=== PATIENT | male | born 2000 ===

== ENCOUNTER 2023-04-23 16:36 | Observation (INO) ==
[2023-04-23] MEDS ORDERED: Patient's ALLERGY Info needs ENTERED SCH (16:48)
--- NOTE | 2023-04-23 16:49 | ED Triage Note ---
Date of Service April 23, 2023 History of Present Illness This patient was briefly evaluated while in triage. An abbreviated physical exam was performed. This patient is a 22-year-old Male who presents to the ED for evaluation of severe abdominal pain. Pain is on the right side and started around 6 am. He denies nausea/vomiting. Pain is constant. He denies urinary symptoms. Physical Exam VITALS: Vitals are noted on the nurse's note and reviewed by myself. GENERAL: This is a 22-year-old male, in no acute distress, well-developed well- nourished. SKIN: The skin was without rashes. HEART: Regular rate and rhythm without murmurs gallops or rubs. LUNGS: Clear to auscultation bilaterally without wheezes, rales or rhonchi. ABDOMEN: Positive bowel sounds x 4. Tenderness to palpation in the right mid abdomen. NEURO: Patient was alert and oriented to person place and time. Initial orders for labs and / or imaging were placed and patient was placed in the waiting area until a bed is available. Please see further documentation for the full ED course.
[2023-04-23 17:24] LABS: Basophils # (auto) 0.03 K/uL (0.00-0.20); Basophils % (auto) 0.2 %; Eosinophils # (auto) 0.03 K/uL (0.00-0.50); Eosinophils % (auto) 0.2 %; Hematocrit (blood only) 45.7 % (42.0-52.0); Hemoglobin 15.9 g/dl (14.0-18.0); Immature Granulocytes # (auto) 0.04 K/uL (0.01-0.20); Immature Granulocytes % (auto) 0.3 %; Lymphocytes # (auto) 1.36 K/uL (1.20-3.40); Lymphocytes % (auto) 9.2 %; Mean Corpuscular Hemoglobin 29.4 pg (25.0-34.0); Mean Corpuscular Hgb Conc 34.8 g/dL (32.0-36.0); Mean Corpuscular Volume 84.6 fL (80.0-100.0); Mean Platelet Volume 9.7 fL (9.4-12.4); Monocytes % (auto) 7.4 %; Neutrophils # (auto) 12.21 K/uL (1.40-6.50); Neutrophils % (auto) 82.7 %; Platelet Count 214 K/uL (130-400); RDW Coefficient of Variation 12.4 % (11.5-14.5); RDW Standard Deviation 38.3 fL (36.4-46.3); White Blood Count 14.77 K/ul (4.8-10.8)
[2023-04-23 17:41] LABS: Albumin Globulin Ratio 1.4 (0.9-2); BUN Creatinine Ratio 21.1 (10-20); Bilirubin,Total 0.7 mg/dl (0.2-1.0); Calcium 9.9 mg/dl (8.6-10.3); Creatinine Clr Calc Pharmacy 104.5 ml/min; Est GFR (African American) 91.5 ml/min; Est GFR (Non-African American) 78.9 ml/min; Globulin 3.6 gm/dl (2.5-4.0); Potassium 3.8 mmol/L (3.5-5.1); Total Protein 8.6 gm/dl (6.0-8.3)
[2023-04-23] MEDS ORDERED: OPTIRAY 320 100ml IV ONE (18:20)
[2023-04-23] MEDS ORDERED: MoRPHine SULFATE 10 MG/ML CARP/VIAL IV STA (18:20)
[2023-04-23] MEDS ORDERED: MoRPHine SULFATE 4 MG/ML 1 ML CARP\\VIAL ONE (18:25)
[2023-04-23] MEDS ORDERED: MoRPHine SULFATE 2 MG/ML CARP ONE ×2 (18:26→23:01)
--- NOTE | 2023-04-23 18:42 | CT Scan Report ---
ABDOMEN AND PELVIS CT WITH IV CONTRAST CT DOSE: 1389.67 mGy.cm HISTORY: Acute right-sided abdominal pain right sided abd pain TECHNIQUE: Multiaxial CT images of the abdomen and pelvis were performed following the IV administrat ion of 93 cc of Optiray, A dose lowering technique was utilized adhering to the principles of ALARA. COMPARISON STUDY: None. FINDINGS: The lung bases are clear. The liver, spleen, gallbladder, pancreas, kidneys, and adrenal gl ands are within normal limits. The appendix is dilated, fluid-filled and inflamed measuring up to 1.2 cm transversely with thickened pena and adjacent inflammatory stranding. 2.7 cm proximal appendicea l appendicolith. No pneumoperitoneum or abscess. Subcentimeter right lower quadrant lymph nodes are l ikely reactive. No bowel wall thickening or obstruction. The pelvic organs are unremarkable. Chronic bilateral L5 pars defects without spondylolisthesis. No acute fracture. Minimal lumbar levoscoliosis. IMPRESSION: Acute appendicitis with appendicolith. No pneumoperitoneum or abscess. ACT 112: Negative or not required by law. The above report was generated using voice recognition software. It may contain grammatical, syntax o r spelling errors. Electronically signed by: Edgard Dutta M.D. 04/23/2023 6:40 PM
--- NOTE | 2023-04-23 19:08 | History & Physical Report ---
Date of Service April 23, 2023 Assessment & Plan (1) Acute appendicitis: Plan: 22 yr old man with acute appendicitis. Discussed lap appendectomy with risks of bleeding, infection, conversion to open, postop ileus/ abscess, negative appy. Expected 1-2 week recovery period reviewed. Consent signed. History of Present Illness Chief Complaint: abdominal pain Primary Care Provider: NO PCP 22 yr old man with right lower quadrant abdominal pain. Began more generalized this am then migrated to right lower quadrant. Pain is constant, not worse with movement. Was able to nap but the pain woke him up. No vomiting. Mild nausea. Last meal was this morning around 9:30 am, last vaped around 4:20 pm. No fevers. Pain is 8/10 in intensity, worse if he laughs. No similar symptoms. Past Med/Surg History Social History Smoking Status: Current some day smoker Tobacco Type: E-cigarettes / Vaping Preferred Language: Kazakh Feels Safe at Home: Yes Review of Systems Review of Systems: All systems reviewed & are unremarkable except as noted in HPI & below Physical Exam Constitutional: WD/WN, vitals as above Eyes: PERRL, conjunctivae normal, anicteric sclerae Respiratory: normal respiratory effort, lungs clear to auscultation Cardiovascular: RRR, no murmur, no edema Gastrointestinal (Abdomen): Inspection/Auscultation: abdomen normal to insp ection, + abdomen distended (mild) and normal bowel sounds Percussion/Palpation: + abdomen tender (over McBurney's point and in left lower quadrant) and abdomen soft; no guarding and no hepatosplenomegaly Musculoskeletal: no cyanosis or clubbing, extremities motor strength 5/5 Neurologic: awake; no focal motor deficits Psychiatric: A+Ox3, euthymic affect Results & Data Results & Data Vital Signs (Past 12 Hours) Vital Signs Temp Pulse Pulse Resp BP BP Pulse Ox 04/23/23 18:35 04/23/23 18:35 67 22 171/95 H 100 04/23/23 16:48 36.7 C 83 19 141/93 H 97 O2 Del Method 04/23/23 18:35 Room Air 04/23/23 18:35 Room Air 04/23/23 16:48 Room Air Laboratory Results 04/23/23 Range/Units 17:08 WBC 14.77 H (4.8-10.8) K/ul RBC 5.40 (4.70-6.10) M/uL Hgb 15.9 (14.0-18.0) g/dl Hct 45.7 (42.0-52.0) % MCV 84.6 (80.0-100.0) fL MCH 29.4 (25.0-34.0) pg MCHC 34.8 (32.0-36.0) g/dL RDW Std Deviation 38.3 (36.4-46.3) fL RDW Coeff of Roxana 12.4 (11.5-14.5) % Plt Count 214 (130-400) K/uL MPV 9.7 (9.4-12.4) fL Immature Gran % (Auto) 0.3 % Neut % (Auto) 82.7 % Lymph % (Auto) 9.2 % [place] % (Auto) 7.4 % Eos % (Auto) 0.2 % Baso % (Auto) 0.2 % Neut # (Auto) 12.21 H (1.40-6.50) K/uL Lymph # (Auto) 1.36 (1.20-3.40) K/uL [place] # (Auto) 1.10 H (0.11-0.59) K/uL Eos # (Auto) 0.03 (0.00-0.50) K/uL Baso # (Auto) 0.03 (0.00-0.20) K/uL Immature Gran # (Auto) 0.04 (0.01-0.20) K/uL Sodium 135 L (136-145) mmol/L Potassium 3.8 (3.5-5.1) mmol/L Chloride 101 (98-107) mmol/L Carbon Dioxide 26 (21-32) mmol/L Anion Gap 8 (3-11) BUN 27 H (6-23) mg/dl Creatinine 1.28 (0.6-1.4) mg/dl Est Cr Clr Drug Dosing 104.5 ml/min Est GFR ( Amer) 91.5 ml/min Est GFR (Non-Af Amer) 78.9 ml/min BUN/Creatinine Ratio 21.1 H (10-20) Glucose 95 (70-99(Fasting)) mg/dl Calcium 9.9 (8.6-10.3) mg/dl Total Bilirubin 0.7 (0.2-1.0) mg/dl AST 35 (13-39) U/L ALT 41 (7-52) U/L Alkaline Phosphatase 53 (34-104) U/L Total Protein 8.6 H (6.0-8.3) gm/dl Albumin 5.0 (3.4-5.0) gm/dl Globulin 3.6 (2.5-4.0) gm/dl Albumin/Globulin Ratio 1.4 (0.9-2) Lipase 21 (11-82) U/L Diagnostic Findings ABDOMEN AND PELVIS CT WITH IV CONTRAST CT DOSE: 1389.67 mGy.cm HISTORY: Acute right-sided abdominal pain right sided abd pain TECHNIQUE: Multiaxial CT images of the abdomen and pelvis were performed following the IV administration of 93 cc of Optiray, A dose lowering technique was utilized adhering to the principles of ALARA. COMPARISON STUDY: None. FINDINGS: The lung bases are clear. The liver, spleen, gallbladder, pancreas, kidneys, and adrenal glands are within normal limits. The appendix is dilated, fluid-filled and inflamed measuring up to 1.2 cm transversely with thickened pena and adjacent inflammatory stranding. 2.7 cm proximal appendiceal appendicolith. No pneumoperitoneum or abscess. Subcentimeter right lower quadrant lymph nodes are likely reactive. No bowel wall thickening or obstruction. The pelvic organs are unremarkable. Chronic bilateral L5 pars defects without spondylolisthesis. No acute fracture. Minimal lumbar le voscoliosis. IMPRESSION: Acute appendicitis with appendicolith. No pneumoperitoneum or abscess. (1) Acute appendicitis Acute appendicitis type: with localized peritonitis Appendicitis abscess presence: without abscess Appendicitis gangrene presence: without gangrene Appendicitis perforation presence: without perforation Qualified Code(s): K35.30 - Acute appendicitis with localized peritonitis, without perforation or gangrene
[2023-04-23] MEDS ORDERED: ROCURONIUM BROMIDE 10 MG/ML 5 ML VIAL IV ONE (19:31)
[2023-04-23] MEDS ORDERED: PROPOFOL IV EMULSION 10 MG/ML 20 ML VIAL IV ONE (19:31)
[2023-04-23] MEDS ORDERED: fentaNYL citrate PF 100 MCG/2 ML VIAL ONE ×2 (19:32→20:14)
[2023-04-23] MEDS ORDERED: BUPIVACAINE 0.5 % 5 MG/1 ML MPF 30ML VIAL ONE (19:35)
--- NOTE | 2023-04-23 19:37 | Emergency Department Note ---
ED Provider Note History of Present Illness Chief Complaint: Flank Pain Stated Complaint: ABDOMINAL/GROIN/RT FLANK PAIN, NAUSEA Time Seen by Provider: 04/23/23 18:18 Source: patient Mode of arrival: ambulatory Limitations: no limitations This patient is a 22-year-old male who presents to the emergency department for evaluation of right-sided abdominal pain. Patient reports that pain started this morning. Pain was initially fairly vague and mild, but has worsened throughout the day and is now located on the right side. He denies any nausea/vomiting. He denies any fevers. He denies any urinary symptoms. Past Med/Surg History Social History Smoking Status: Current some day smoker Tobacco Type: E-cigarettes / Vaping Preferred Language: Khmer Feels Safe at Home: Yes Physical Exam Vital Signs Vital Signs - 24 hr 04/23/23 16:48 04/23/23 18:35 04/23/23 18:35 Temperature 36.7 C Temperature Source Oral Pulse Rate 83 Pulse Rate [Apical] 67 Respiratory Rate 19 22 Respiratory Effort / Characteristics Non-Labored Respiratory Depth Normal Respiratory Pattern Blood Pressure 141/93 H Blood Pressure [Left Arm] Blood Pressure [Right Arm] 171/95 H Blood Pressure Mean 109 Blood Pressure Mean [Left Arm] Blood Pressure Mean [Right Arm] 120 Blood Pressure Position [Left Arm] Pulse Oximetry 97 100 Oxygen Delivery Method Room Air Room Air Room Air Sepsis Recent Fever Within 48 Hours No Sepsis New/Unexplained Change in Mental Status No Sepsis Action Taken by Nursing No Action Required 04/23/23 20:10 Temperature Temperature Source Pulse Rate Pulse Rate [Apical] 64 Respiratory Rate 16 Respiratory Effort / Characteristics Non-Labored Spontaneous Respiratory Depth Normal Respiratory Pattern Regular Blood Pressure Blood Pressure [Left Arm] 143/77 H Blood Pressure [Right Arm] Blood Pressure Mean Blood Pressure Mean [Left Arm] 99 Blood Pressure Mean [Right Arm] Blood Pressure Position [Left Arm] Semi-fowlers Pulse Oximetry 99 Oxygen Delivery Method Room Air Sepsis Recent Fever Within 48 Hours Sepsis New/Unexplained Change in Mental Status Sepsis Action Taken by Nursing VITALS: Vitals are noted on the nurse's note and reviewed by myself. GENERAL: This is a 22-year-old male, in no acute distress, well-developed well- nourished. SKIN: The skin was without rashes. HEART: Regular rate and rhythm without murmurs gallops or rubs. LUNGS: Clear to auscultation bilaterally without wheezes, rales or rhonchi. ABDOMEN: Positive bowel sounds x 4. Soft, moderate tenderness in the right lower quadrant. Mild guarding. NEURO: Patient was alert and oriented to person place and time. Course Administered Medications Fentanyl Citrate (Fentanyl Citrate Pf 100 Mcg/2 Ml Vial) 50 mcg IV Q15M PRN PRN Reason: Pain Stop: 05/07/23 20:10 Last Admin: 04/23/23 21:25 Dose: 50 mcg Documented By: Admin: 04/23/23 20:15 Dose: 50 mcg Documented By: VICTOR M Cefoxitin Sodium 2,000 mg/ (Dextrose) 50 mls @ 120 mls/hr IV PREOP@2200 ROBERTA Stop: 04/24/23 04:00 Last Admin: 04/23/23 22:54 Dose: 120 mls/hr Documented By: EMMANUELLE Lactated Ringer's (Lr) 1,000 mls @ 100 mls/hr IV .Q10H ROBERTA Stop: 05/23/23 22:09 Last Admin: 04/23/23 23:24 Dose: 100 mls/hr Documented By: EMMANUELLE Discontinued Medications Fentanyl Citrate (Fentanyl Citrate Pf 100 Mcg/2 Ml Vial) Confirm Administered Dose 100 mcg .ROUTE .STK-MED ONE Stop: 04/23/23 20:15 Last Admin: 04/23/23 20:17 Dose: Not Given Documented By: VICTOR M Ioversol (Optiray 320 100ml) 93 ml IV ONCE ONE Stop: 04/23/23 18:21 Last Admin: 04/23/23 18:20 Dose: 93 ml Documented By: MELISSA Morphine Sulfate (Morphine Sulfate 10 Mg/Ml Carp/Vial) 6 mg IV NOW STA Stop: 04/23/23 18:21 Last Admin: 04/23/23 18:30 Dose: Not Given Documented By: YUSUF Morphine Sulfate (Morphine Sulfate 4 Mg/Ml 1 Ml Carp\Vial) Confirm Administered Dose 4 mg .ROUTE .STK-MED ONE Stop: 04/23/23 18:26 Last Admin: 04/23/23 18:30 Dose: 4 mg Documented By: YUSUF Morphine Sulfate (Morphine Sulfate 2 Mg/Ml Carp) Confirm Administered Dose 2 mg .ROUTE .STK-MED ONE Stop: 04/23/23 18:27 Last Admin: 04/23/23 18:30 Dose: 2 mg Documented By: YUSUF Morphine Sulfate (Morphine Sulfate 2 Mg/Ml Carp) Confirm Administered Dose 2 mg .ROUTE .STK-MED ONE Stop: 04/23/23 23:02 Last Admin: 04/23/23 23:02 Dose: 2 mg Documented By: EMMANUELLE Ondansetron HCl (Ondansetron Inj 2 Mg/Ml 2 Ml Vial) Confirm Administered Dose 4 mg .ROUTE .STK-MED ONE Stop: 04/23/23 22:46 Last Admin: 04/23/23 22:47 Dose: 4 mg Documented By: EMMANUELLE Medical Decision Making Differential Diagnosis Appendicitis, testicular torsion, infections, diverticulitis, UTI, obstruction, mesenteric ischemia, aortic pathology, inflammatory bowel disease, renal colic, PUD, pancreatitis, biliary pathology, hernia, volvulus, constipation, as well as other pathologies. Home Medications was personally reviewed by me Laboratory Data Attestation: I reviewed the patient's lab results. 04/23/23 17:08 04/23/23 17:08 Lab Results 04/23/23 04/23/23 Range/Units 17:08 19:02 WBC 14.77 H (4.8-10.8) K/ul RBC 5.40 (4.70-6.10) M/uL Hgb 15.9 (14.0-18.0) g/dl Hct 45.7 (42.0-52.0) % MCV 84.6 (80.0-100.0) fL MCH 29.4 (25.0-34.0) pg MCHC 34.8 (32.0-36.0) g/dL RDW Std Deviation 38.3 (36.4-46.3) fL RDW Coeff of Roxana 12.4 (11.5-14.5) % Plt Count 214 (130-400) K/uL MPV 9.7 (9.4-12.4) fL Immature Gran % (Auto) 0.3 % Neut % (Auto) 82.7 % Lymph % (Auto) 9.2 % [place] % (Auto) 7.4 % Eos % (Auto) 0.2 % Baso % (Auto) 0.2 % Neut # (Auto) 12.21 H (1.40-6.50) K/uL Lymph # (Auto) 1.36 (1.20-3.40) K/uL [place] # (Auto) 1.10 H (0.11-0.59) K/uL Eos # (Auto) 0.03 (0.00-0.50) K/uL Baso # (Auto) 0.03 (0.00-0.20) K/uL Immature Gran # (Auto) 0.04 (0.01-0.20) K/uL Sodium 135 L (136-145) mmol/L Potassium 3.8 (3.5-5.1) mmol/L Chloride 101 (98-107) mmol/L Carbon Dioxide 26 (21-32) mmol/L Anion Gap 8 (3-11) BUN 27 H (6-23) mg/dl Creatinine 1.28 (0.6-1.4) mg/dl Est Cr Clr Drug Dosing 104.5 ml/min Est GFR ( Amer) 91.5 ml/min Est GFR (Non-Af Amer) 78.9 ml/min BUN/Creatinine Ratio 21.1 H (10-20) Glucose 95 (70-99(Fasting)) mg/dl Calcium 9.9 (8.6-10.3) mg/dl Total Bilirubin 0.7 (0.2-1.0) mg/dl AST 35 (13-39) U/L ALT 41 (7-52) U/L Alkaline Phosphatase 53 (34-104) U/L Total Protein 8.6 H (6.0-8.3) gm/dl Albumin 5.0 (3.4-5.0) gm/dl Globulin 3.6 (2.5-4.0) gm/dl Albumin/Globulin Ratio 1.4 (0.9-2) Lipase 21 (11-82) U/L Urine Color Yellow Urine Appearance Clear (Clear) Urine pH 7.0 (4.5-7.5) Ur Specific [place] 1.045 H (1.000-1.030) Urine Protein Negative (Negative) Urine Glucose (UA) Negative (Negative) Urine Ketones Negative (Negative) Urine Blood Negative (Negative) Urine Nitrite Negative (Negative) Urine Bilirubin Negative (Negative) Urine Urobilinogen Negative (Negative) Ur Leukocyte Esterase Negative (Negative) Imaging Data Attestation: I personally reviewed and interpreted this imaging study as follows: Radiologist's Impression: Abdomen/Pelvis CT 04/23/23 16:[address] WITH IV CONTRAST CT DOSE: 1389.67 mGy.cm HISTORY: Acute right-sided abdominal pain right sided abd pain TECHNIQUE: Multiaxial CT images of the abdomen and pelvis were performed following the IV administration of 93 cc of Optiray, A dose lowering technique was utilized adhering to the principles of ALARA. COMPARISON STUDY: None. FINDINGS: The lung bases are clear. The liver, spleen, gallbladder, pancreas, kidneys, and adrenal glands are within normal limits. The appendix is dilated, fluid-filled and inflamed measuring up to 1.2 cm transversely with thickened pena and adjacent inflammatory stranding. 2.7 cm proximal appendiceal appendicolith. No pneumoperitoneum or abscess. Subcentimeter right lower quadrant lymph nodes are likely reactive. No bowel wall thickening or obstruction. The pelvic organs are unremarkable. Chronic bilateral L5 pars defects without spondylolisthesis. No acute fracture. Minimal lumbar levoscoliosis. IMPRESSION: Acute appendicitis with appendicolith. No pneumoperitoneum or abscess. ACT 112: Negative or not required by law. The above report was generated using voice recognition software. It may contain grammatical, syntax or spelling errors. Electronically signed by: Edgard Dutta M.D. 04/23/2023 6:40 PM MDM Narrative Continuous plant tender: Order was placed for continuous plant tender. Patient was placed on the plant tender. Patient was noted to be in normal sinus rhythm at an initial rate of 64 bpm. This patient is a 22-year-old male who presents to the emergency department for evaluation of right-sided abdominal pain. Labs revealed a leukocytosis of 14,000. CT of the abdomen/pelvis was performed and reviewed by radiology and did show uncomplicated appendicitis. Case was discussed with general surgery on-call, Dr. Jones who agreed to take the patient to the OR. All findings and treatment plan discussed with the patient. He initially received Toradol for pain, later was given a dose of morphine. Impression Acute appendicitis Discharge Plan Visit Data Chief Complaint: Flank Pain Stated Complaint: ABDOMINAL/GROIN/RT FLANK PAIN, NAUSEA ED Provider: Claudio Mayorga ED Midlevel Provider: Joanna Nguyen Discharge Problem: Acute appendicitis Discharge Instructions Interventions: ED Discharge Assessment Last Done: 04/23/23 19:40
[2023-04-23 19:38] LABS: Appearance Urine Clear (Clear); Bilirubin Urine Negative (Negative); Blood Urine Negative (Negative); Color Urine Yellow; Glucose Urine UA Negative (Negative); Ketones Urine Negative (Negative); Leukocyte Esterase Urine Negative (Negative); Nitrite Urine Negative (Negative); Protein Urine Negative (Negative); Specific Gravity Urine 1.045 (1.000-1.030); Urobilinogen Urine Negative (Negative)
[2023-04-23] MEDS: fentaNYL citrate PF 100 MCG/2 ML VIAL IV PRN ×2 (20:15→21:25)
[2023-04-23] MEDS ORDERED: cefOXitin 2,000 MG in DEXTROSE 5 % MINI-B 50 ML IV SCH (22:00)
[2023-04-23] MEDS ORDERED: oxyCODONE/ACETAMINOPHEN 5mg/325mg TAB PO PRN ×2 (22:10)
[2023-04-23] MEDS ORDERED: KETOROLAC TROMETHAMINE 15 MG/ML VIAL IV PRN (22:10)
[2023-04-23] MEDS ORDERED: MoRPHine SULFATE 4 MG/ML 1 ML CARP\\VIAL IV PRN (22:10)
[2023-04-23] MEDS ORDERED: ONDANSETRON INJ 2 MG/ML 2 ML VIAL IV PRN (22:10)
[2023-04-23] MEDS ORDERED: IBUPROFEN 200 MG TAB PO PRN (22:10)
[2023-04-23] MEDS ORDERED: MoRPHine SULFATE 2 MG/ML CARP IV PRN (22:10)
[2023-04-23] MEDS ORDERED: ONDANSETRON INJ 2 MG/ML 2 ML VIAL ONE (22:45)
[2023-04-23] MEDS: LACTATED RINGER'S 1,000 ML IV SCH (23:24)
[2023-04-24] MEDS ORDERED: cefOXitin SOD 2,000 MG VIAL IV SCH (06:00)
[2023-04-24] MEDS: cefOXitin 1,000 MG in DEXTROSE 5 % MINI-B 50 ML IV SCH ×2 (06:39→11:12)
[2023-04-24] MEDS ORDERED: PROPOFOL IV EMULSION 10 MG/ML 20 ML VIAL IV ONE (07:02)
[2023-04-24] MEDS ORDERED: ONDANSETRON INJ 2 MG/ML 2 ML VIAL ONE (07:02)
[2023-04-24] MEDS ORDERED: DEXAMETHASONE SOD INJ 4 MG/ML VIAL ONE (07:02)
[2023-04-24] MEDS ORDERED: LIDOCAINE 2% 2 ML VIAL/AMP(20MG/ML) INFIL ONE (07:02)
[2023-04-24] MEDS ORDERED: MIDAZOLAM HCL 1 MG/ML 2ML VIAL ONE (07:03)
[2023-04-24] MEDS ORDERED: fentaNYL citrate PF 100 MCG/2 ML VIAL ONE ×2 (07:03→08:34)
[2023-04-24] MEDS ORDERED: BUPIVACAINE 0.5 % 5 MG/1 ML MPF 30ML VIAL ONE (07:07)
--- NOTE | 2023-04-24 07:14 | Anesthesiology Consultation ---
Date of Service April 24, 2023 Assessment & Plan Chart Review Chart Review: Acceptable Risk for Surgery and Patient NOT seen in Pre Admission Testing Consults Requested none ASA [id number] Proposed Anesthesia Anesthesia Type: General History Surgery Operation Date: 04/24/23 07:30 Proposed Procedures p Laparoscopic Appendectomy - Eri Jones MD Height/Weight Height: 5 ft 8 in Weight: 98 kg Allergies Allergy/AdvReac Type Severity Reaction Status Date / Time No Known Allergies Allergy Unverified 04/24/23 01:04 Medications Active Medications Generic Name Dose Route Start Last Admin Trade Name Freq PRN Reason Stop Dose Admin Fentanyl Citrate 50 mcg 04/23/23 20:11 04/23/23 21:25 Fentanyl Citrate Pf 100 Mcg/2 Ml Vial IV 05/07/23 20:10 50 mcg Q15M PRN Administration Pain Lactated Ringer's 1,000 mls @ 100 mls/hr 04/23/23 22:10 04/23/23 23:24 Lr IV 05/23/23 22:09 100 mls/hr .Q10H ROBERTA Administration Cefoxitin Sodium 1,000 mg/ 50 mls @ 100 mls/hr 04/24/23 06:00 04/24/23 06:39 Dextrose IV 04/28/23 05:59 100 mls/hr Q6H ROBERTA Administration Protocol Past Medical History obese vapes E - cigarettes/smokes cigarettes Exercise / Class Metabolic Activity II 4-5 Yardwork/Stairs/Walk up hill Past Anesthesia History No Hx of Anesthesia Complications and No Family Hx of Anesthesia Complications History of PONV No Hx of PONV and No Hx of Motion Sickness Social History Smoking Status: Current some day smoker Do You Dip or Chew Tobacco: No Hx Alcohol Use: Yes Alcohol type: beer alcohol intake frequency: holidays/special occasions only Hx Substance Use: No substance use type: does not use Physical Exam Vital Signs Last Vital Signs Temp 36.6 C 04/24/23 04:40 Pulse 75 04/24/23 04:40 Resp 18 04/24/23 04:40 BP 120/67 04/24/23 04:40 Pulse Ox 94 04/24/23 04:40 O2 Del Method Room Air 04/24/23 04:40 Testing Laboratory Results 04/23/23 17:08 04/23/23 17:08 Urine Color Yellow 04/23/23 19:02 Urine Appearance Clear (Clear) 04/23/23 19:02 Urine pH 7.0 (4.5-7.5) 04/23/23 19:02 Ur Specific [place] 1.045 (1.000-1.030) H 04/23/23 19:02 Urine Protein Negative (Negative) 04/23/23 19:02 Urine Glucose (UA) Negative (Negative) 04/23/23 19:02 Urine Ketones Negative (Negative) 04/23/23 19:02 Urine Nitrite Negative (Negative) 04/23/23 19:02 Ur Leukocyte Esterase Negative (Negative) 04/23/23 19:02
--- NOTE | 2023-04-24 07:23 | History & Physical Bridge Note ---
Date of Service April 24, 2023 History & Physical Bridge Note I have examined the patient, reviewed the History & Physical and in the interval since the performance of the History & Physical I have noted the following changes of clinical significance: no changes noted
[2023-04-24] MEDS ORDERED: HYDROmorphone INJ 1 MG/ML SYRINGE IV PRN (07:34)
[2023-04-24] MEDS ORDERED: NALOXONE HCL 0.4 MG/1 ML VIAL/CARP IV PRN (07:34)
[2023-04-24] MEDS ORDERED: PROMETHAZINE HCL 12.5 MG in SODIUM CHLORIDE 0.9% 50 ML IV PRN (07:34)
[2023-04-24] MEDS ORDERED: ePHEDrine sulfate 50 MG/ML AMP IV PRN (07:34)
[2023-04-24] MEDS ORDERED: ATROPINE SULFATE 0.1 MG/ML 10ML SYR IV PRN (07:34)
[2023-04-24] MEDS ORDERED: ONDANSETRON INJ 2 MG/ML 2 ML VIAL IV PRN (07:34)
[2023-04-24] MEDS ORDERED: FLUMAZENIL 0.1 MG/1 ML 10 ML VIAL IV PRN (07:34)
[2023-04-24] MEDS ORDERED: fentaNYL citrate PF 100 MCG/2 ML VIAL IV PRN (07:34)
[2023-04-24] MEDS ORDERED: ROCURONIUM BROMIDE 10 MG/ML 5 ML VIAL IV ONE (08:01)
[2023-04-24] MEDS ORDERED: SUGAMMADEX SODIUM 200 MG/2 ML VIAL IV ONE (08:01)
[2023-04-24] MEDS ORDERED: KETOROLAC 30 MG/ML VIAL ONE (08:10)
--- NOTE | 2023-04-24 08:47 | Operative Report ---
Post Operative Report Pre & Post Diagnosis Operation Date: 04/24/23 07:30 Pre-Op Diagnosis: Acute appendicitis Post-Op Diagnosis: Acute appendicitis I identified the patient and participated in the time-out.: Yes Procedure Operation Date: 04/24/23 07:30 Actual Procedures p Laparoscopic Appendectomy - Eri Jones MD Surgeon Eri Jones MD Supervisor Tank House none Estimated Blood Loss 5 Findings Consistent with Post-Op Diagnosis acute non perforated appendicitis Fluids 500 cc Specimens appendix Drains none Anesthesia Type General Complications none Disposition Accompanied Patient To Recovery: No Indications 22-year-old man who presented with acute appendicitis. He was consented for laparoscopic appendectomy. Description of Procedure The patient was on Mefoxin preoperatively. After the induction of general endotracheal anesthesia he was positioned with his left arm tucked. His abdomen was sterilely prepped and draped. He was positioned in Trendelenburg. A supraumbilical incision was made and a Veress needle placed into the peritoneal cavity. This was tested with a saline drop test. Pneumoperitoneum was established. Initial pressure was 2 mmHg and this was taken up to 15 mmHg. A 12 mm trocar was placed with the camera through the trocar site. The abdomen was inspected and noted to have some fluid around the area of the right paracolic gutter. 2 additional trocars were placed under direct vision. A 5 mm was placed in the left lower quadrant and a 5 mm was placed in the midline pubic area. The appendix was noted to be inflamed at the tip. The appendix was grasped at its base on the cecum. A window was created in this area and the appendix was divided off the cecum with a firing of the CANDIDA 45 purple load stapler. The appendiceal mesentery was taken with a second firing of the CANDIDA duvall load stapler. The appendix was placed in an Endobag. This was then removed through the umbilical incision. The abdomen was irrigated and suctioned clear. The trocars were removed. The fascia of the umbilical area was closed with 0 Vicryl stitches placed anteriorly. 30 cc of half percent Marcaine was used for local anesthesia. The skin of all 3 incisions was closed with running subcuticular 4-0 Vicryl sutures. Steri-Strips and sterile dressings were applied. He was awakened and taken to recovery in stable condition. I attest to the content of the Intraoperative Record and any orders documented therein. Any exceptions are noted below.
--- NOTE | 2023-04-24 09:17 | Anesthesiology Progress Note ---
Date of Service April 24, 2023 Anesthesia Post Procedure Vital Signs Vital Signs: Temp Pulse Pulse Pulse Resp BP BP 04/24/23 09:05 62 21 114/70 04/24/23 08:55 92 H 19 160/99 H 04/24/23 08:39 36.2 C L 81 19 114/84 04/24/23 04:40 36.6 C 75 18 120/67 04/24/23 04:30 37.1 C 04/24/23 01:08 36.9 C 04/23/23 22:00 37.0 C 79 18 134/66 04/23/23 21:00 37.3 C 71 16 128/78 04/23/23 20:10 64 16 143/77 H 04/23/23 18:35 04/23/23 18:35 67 22 04/23/23 16:48 36.7 C 83 19 141/93 H BP Pulse Ox O2 Del Method O2 Flow Rate 04/24/23 09:05 96 Nasal Cannula 4 04/24/23 08:55 95 Nasal Cannula 4 04/24/23 08:39 95 Nasal Cannula 4 04/24/23 04:40 94 Room Air 04/24/23 04:30 04/24/23 01:08 04/23/23 22:00 100 Room Air 04/23/23 21:00 97 Room Air 04/23/23 20:10 99 Room Air 04/23/23 18:35 Room Air 04/23/23 18:35 171/95 H 100 Room Air 04/23/23 16:48 97 Room Air Pain Intensity Right Flank: Pain Intensity: 7 Abdomen: Pain Intensity: 2 Transfer of Care Handoff Completed per policy Notes Mental Status: alert / awake / arousable Patient Amnestic to Procedure: Yes Nausea / Vomiting: adequately controlled Pain: adequately controlled Airway Patency, RR, SpO2: stable & adequate BP & HR: stable & adequate Hydration State: stable & adequate Anesthetic Complications: no major complications apparent
[2023-04-24] MEDS: LACTATED RINGER'S 1,000 ML IV SCH (09:43)
--- NOTE | 2023-04-24 12:32 | Discharge Summary ---
Date of Service April 24, 2023 Admission HPI Per Admitting Provider 22 yr old man with right lower quadrant abdominal pain. Began more generalized this am then migrated to right lower quadrant. Pain is constant, not worse with movement. Was able to nap but the pain woke him up. No vomiting. Mild nausea. Last meal was this morning around 9:30 am, last vaped around 4:20 pm. No fevers. Pain is 8/10 in intensity, worse if he laughs. No similar symptoms. Admission Exam (Per Admitting) Constitutional WD/WN, vitals as above Eyes PERRL, conjunctivae normal, anicteric sclerae Respiratory normal respiratory effort, lungs clear to auscultation Cardiovascular RRR, no murmur, no edema Gastrointestinal (Abdomen) Inspection/Auscultation: abdomen normal to inspection, + abdomen distended (mild) and normal bowel sounds Percussion/Palpation: + abdomen tender (over McBurney's point and in left lower quadrant) and abdomen soft; no guarding and no hepatosplenomegaly Musculoskeletal no cyanosis or clubbing, extremities motor strength 5/5 Neurologic awake; no focal motor deficits Psychiatric A+Ox3, euthymic affect Discharge Data Procedures Performed Operation Date: 04/24/23 07:30 Actual Procedures p Laparoscopic Appendectomy - Eri Jones MD Hospital Course (1) Acute appendicitis: Did well following lap appendectomy. Good pain control. No nausea.
[2023-04-25] MEDS ORDERED: cefOXitin 1,000 MG in DEXTROSE 5 % MINI-B 50 ML IV SCH (04:00)
== END 2023-04-24 12:55 | disposition home or self-care (01) ==
LOC: ED 16:36 → 3N 19:40 → OR 19:40
DX: K35.30 Acute appendicitis with localized peritonitis, without perforation or gangrene